=== PATIENT | female | born 1965 | race Caucasian/White ===

== ENCOUNTER → 2022-01-09 | Outpatient (CLI) | payer OTHER ==
--- NOTE | 2022-01-09 10:40 | CT ---
EXAMINATION TYPE: CT abdomen pelvis wo con DATE OF EXAM: 01/09/2022 COMPARISON: None HISTORY: Abdominal pain CT DLP: 863 mGycm Automated exposure control for dose reduction was used. TECHNIQUE: Helical acquisition of images was performed from the lung bases through the pelvis. FINDINGS: LUNG BASES: Calcified granuloma left lower lobe. LIVER/GB: No significant abnormality is appreciated. PANCREAS: Mild prominence of the pancreatic head can be reassessed with ultrasound or IV contrast exa m. SPLEEN: No significant abnormality is seen. ADRENALS: No significant abnormality is seen. KIDNEYS: No hydronephrosis. 3 mm left renal calculus. ADENOPATHY: None visualized. OSSEOUS STRUCTURES: Hypertrophic and degenerative changes of the spine. Cystic changes involving mary tabulum arthropathy. BOWEL: There is wall thickening involving the left colon near the splenic flexure inflammatory cochran es in diverticulum. Suspect acute diverticulitis. Although resolution exclude underlying neoplasm. Nu merous other diverticula are seen scattered throughout the colon. Appendix normal. No evidence of bow el obstruction. OTHER: Intrauterine device noted. Aorta of normal caliber. Small anterior abdominal wall hernia is se en. Subcutaneous emphysema incidentally noted in the left flank. IMPRESSION: 1. Acute diverticulitis left colon. Report called to the referring clinician at 10:30 AM 01/09/2022. 2. Nonobstructing nephrolithiasis. 3. Mild prominence of the pancreatic head could be further evaluated with ultrasound or postcontrast CT
[2022-01-09 12:13] LABS: ALT 14 U/L (4-34); AST 25 U/L (14-36); African American GFR (CKD) >90 (>60 ml/min/1.73 sqM); Albumin 4.4 g/dL (3.5-5.0); Albumin/Globulin Ratio 1.6; Alkaline Phosphatase 95 U/L (38-126); Anion Gap 9 mmol/L; Blood Urea Nitrogen 15 mg/dL (7-17); Calcium 9.3 mg/dL (8.4-10.2); Carbon Dioxide 28 mmol/L (22-30); Chloride 102 mmol/L (98-107); Globulin 2.7 g/dL; Glucose 95 mg/dL (74-99); Non-African American GFR(CKD) 80 (>60 ml/min/1.73 sqM); Potassium 4.5 mmol/L (3.5-5.1); Sodium 139 mmol/L (137-145); Total Bilirubin 0.6 mg/dL (0.2-1.3); Total Protein 7.1 g/dL (6.3-8.2)
[2022-01-09 19:20] LABS: Basophils # (A) 0.02 X 10*3/uL (0.00-0.10); Basophils % (A) 0.2 %; Eosinophils # (A) 0.11 X 10*3/uL (0.04-0.35); HCT 41.1 % (37.2-46.3); HGB 12.8 g/dL (12.0-15.0); Immature Grans, Automated 0.3 %; Lymphocytes # (A) 0.98 X 10*3/uL (0.90-5.00); Lymphocytes % (A) 9.2 %; MCH 30.5 pg (27.0-32.0); MCHC 31.1 g/dL (32.0-37.0); MCV 98.1 fL (80.0-97.0); Mean Platelet Volume 9.3 fL (9.5-12.2); Monocytes # (A) 0.86 X 10*3/uL (0.20-1.00); Monocytes % (A) 8.1 %; NRBC Per 100 WBC 0 /100 WBCS (0.0-0.0); Neutrophils % (A) 81.2 %; Platelet Count 334 X 10*3/uL (140-440); RBC 4.19 X 10*6/uL (4.10-5.20); RDW 13.2 % (11.5-14.5)
== END | disposition home or self-care (01) ==
LOC: RADCTMAIN 09:48
PROVIDERS: ATTEND Family Medicine
DX: K57.32 Diverticulitis of large intestine without perforation or abscess without bleeding (principal); N20.0 Calculus of kidney
CPT/HCPCS: 74176; 80053; 85025

== ENCOUNTER → 2022-02-18 | Outpatient (CLI) | payer OTHER ==
--- NOTE | 2022-02-19 07:10 | MR ---
EXAMINATION TYPE: MR abdomen wo/w con DATE OF EXAM: 02/18/2022 COMPARISON: CT scan 01/09/2022 HISTORY: Abnormal CT CONTRAST: Standard multiplanar, multisequence MRI departmental protocol images were obtained without contrast a nd with 7.5 mL intravenous Gadavist gadolinium contrast. There are multiple rounded fluid signal foci in the liver that measure up to 2.6 cm and consistent wi th simple cysts. No dilated ducts. Spleen is intact. The pancreatic duct appears normal. The lung bases are clear. Contrast images show normal enhancement of the kidneys. No adrenal mass. No hydronephrosis. There is normal enhancement of the portal venous system. There is 1 cm cyst like are a in the left side of the pancreatic head near the surface. No evidence of solid pancreatic mass. The pancreatic duct appears normal. Common bile duct appears normal. Gallbladder is contracted. No adren al mass. No ascites. IMPRESSION: Small cyst on the left lateral aspect of the pancreatic head of doubtful significance. No evidence of solid pancreatic mass. No adverse change compared to recent CT scan. There is large bowel diverticulosis. There appears to be improvement in the changes of diverticuliti s in the proximal descending colon. Multiple simple hepatic cysts.
== END | disposition home or self-care (01) ==
LOC: RADMRIMAIN 21:00
PROVIDERS: ATTEND Family Medicine
DX: K76.89 Other specified diseases of liver (principal)
CPT/HCPCS: 74183; A9585

== ENCOUNTER → 2023-07-09 | Outpatient (CLI) | payer OTHER ==
--- NOTE | 2023-07-09 22:12 | MR ---
EXAMINATION TYPE: MR abdomen wo/w con DATE OF EXAM: 07/09/2023 8:02 PM CLINICAL INDICATION:Female, 58 years old with history of K86.2 CYST OF PANCREAS; PHH, Cyst on pancrea s COMPARISON: 02/18/2022 MRI, CT 01/09/2022. TECHNIQUE: Multiplanar multi-sequence imaging was performed without contrast. Post contrast imaging was performed. Post IV contrast subtraction images were also submitted for review. IV Contrast: 8 cc Gadobutrol FINDINGS: LOWER CHEST: No gross irregularity. ABDOMEN Liver: No evidence for cirrhosis. Mild signal dropout on chemical shift imaging. Scattered lesions th roughout the liver including T2 signal posterior aspect of segment 7 measuring 26 x 19 mm which demon strates some peripheral progressive enhancement on delayed imaging suggestive of hemangioma. The maximiliano kirill And more laterally measuring 10 mm, segment 4B measuring 11 mm in segment 3 measuring 7 mm with flash filling in arterial phase imaging. No abnormal postcontrast enhancement. Gallbladder and Bile ducts: No evidence for ductal dilation, or biliary stricture or evidence of chol edocholithiasis. The gallbladder is within normal limits. Pancreas: No ductal dilation. No evidence for solid mass. Pancreatic cystic lesion within the pancrea tic head with multiple septations measuring 13 x 10 mm not significantly changed from prior. No abnor mal postcontrast enhancement. Spleen: Normal for size. Adrenal glands: Unremarkable. Kidneys: No evidence for obstructive uropathy. No suspicious renal masses. Stomach and Bowel: No evidence for bowel wall thickening or evidence for obstruction. Scattered colon ic diverticula. Peritoneum: No evidence of pneumoperitoneum or free fluid. Vasculature: No aortic aneurysm. Musculoskeletal: The osseous structures appear intact. Lymph Nodes: No gross evidence for lymphadenopathy. Abdominal wall: Unremarkable. IMPRESSION: 1. 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 Follow-up in one year with MRI with IV contrast is recommended to ensure stability.. 2. Hepatic steatosis 3. Hepatic lesions compatible with hepatic hemangiomas and simple cysts. These are stable from prior . 4. Colonic diverticulosis.
== END | disposition home or self-care (01) ==
LOC: RADMRIMAIN 18:47
PROVIDERS: ATTEND Family Medicine
DX: K86.2 Cyst of pancreas (principal); K57.30 Diverticulosis of large intestine without perforation or abscess without bleeding; K76.0 Fatty (change of) liver, not elsewhere classified
CPT/HCPCS: 74183; A9585

== ENCOUNTER → 2024-07-18 | Outpatient (CLI) | payer BC, OTHER ==
--- NOTE | 2024-07-19 12:04 | MR ---
EXAMINATION TYPE: MR abdomen wo/w con DATE OF EXAM: 07/18/2024 7:10 PM COMPARISON: CT scan abdomen from . CLINICAL INDICATION: Female, 59 years old with history of K86.2 CYST OF PANCREAS, Cyst on pancreas, A bnormal MRI Abdomen 08-09-2022 TECHNIQUE: Multiplanar multi-sequence imaging was performed without contrast. Post contrast imaging was performed. Post IV contrast subtraction images were also submitted for review. IV Contrast: 7.5 mL Gadobutrol FINDINGS: ABDOMEN Liver: No evidence for cirrhosis. Mild signal dropout on chemical shift imaging. Stable scattered observatio ns throughout the liver. High T2 signal observation in the posterior aspect of segment 7 measures sim ilarly at 26 x 19 mm which demonstrates some peripheral progressive enhancement on delayed imaging cobb ggestive of hemangioma. More laterally measuring similarly at 10 mm, in segment 4B measuring 11 mm, i n segment 3 measuring 7 mm with flash filling in arterial phase imaging. No suspicious postcontrast e nhancement. Gallbladder and Bile ducts: No evidence for ductal dilation, or biliary stricture or evidence of chol edocholithiasis. The gallbladder is within normal limits. Pancreas: No ductal dilation. No evidence for solid mass. Pancreatic cystic lesion within the pancrea tic head with multiple septations measuring 12 x 11 mm mm which is not significantly changed from aurelia or given differences in measuring technique. No abnormal postcontrast enhancement. Spleen: Normal for size. Adrenal glands: Unremarkable. Kidneys: No evidence for obstructive uropathy. No suspicious renal masses. Stomach and Bowel: No evidence for bowel wall thickening or evidence for obstruction. Scattered colon ic diverticula. Peritoneum: No evidence of pneumoperitoneum or free fluid. Vasculature: No aortic aneurysm. Musculoskeletal: The osseous structures appear intact. Lymph Nodes: No gross evidence for lymphadenopathy. Abdominal wall: Unremarkable. IMPRESSION: 1. Stable pancreatic head cystic lesion likely representing side branch intraductal papillary mucino us neoplasm. Consider follow-up imaging in 2 years. 2. Hepatic steatosis 3. Hepatic lesions compatible with hepatic hemangiomas and simple cysts. These remain stable from pr ior. 4. Colonic diverticulosis. [facility], , 07/19/2024 12:01 PM
== END | disposition home or self-care (01) ==
LOC: RADMRIMAIN 18:11
PROVIDERS: ATTEND Family Medicine
DX: K86.2 Cyst of pancreas (principal); K57.30 Diverticulosis of large intestine without perforation or abscess without bleeding; K76.0 Fatty (change of) liver, not elsewhere classified
CPT/HCPCS: 74183; A9585